=== PATIENT | male | born 1950 | race Caucasian/White ===

== ENCOUNTER 2017-06-28 17:25 | Inpatient (IN) | payer MEDICAID, OTHER ==
[2017-06-28] MEDS ORDERED: ONDANSETRON 4 MG/2 ML VIAL IVP ONE (17:50)
[2017-06-28] MEDS ORDERED: NS 1,000 ML IV ONE ×2 (17:50→18:58)
[2017-06-28] MEDS ORDERED: HYDROmorphONE/DILAUDID 1 MG/ML SYR IVP ONE (17:53)
--- NOTE | 2017-06-28 17:55 | EDPHY ---
H & P Stated Complaint: N/V/D since yesterday Time Seen by Provider: 06/28/17 17:47 HPI/ROS: CHIEF COMPLAINT: Vomiting HISTORY OF PRESENT ILLNESS: The patient is a 66-year-old man visiting from [place] who is camping in [place]000 [place]. He states that he thinks he has altitude sickness. Yesterday he began feeling nauseous and vomiting. No diarrhea. No shortness of breath. No abdominal pain. He does feel slightly lightheaded. He denies chest pain. No shortness of breath. No recent fevers or illness. No sick contacts. He denies recent alcohol use or cessation. He has been using marijuana. REVIEW OF SYSTEMS: Constitutional: denies: chills, fever, recent illness, recent injury EENTM: denies: blurred vision, double vision, nose congestion Respiratory: denies: cough, shortness of breath Cardiac: denies: chest pain, irregular heart rate, lightheadedness, palpitations Gastrointestinal/Abdominal: See HPI Genitourinary: denies: dysuria, frequency, hematuria, pain Musculoskeletal: denies: joint pain, muscle pain Skin: denies: lesions, rash, jaundice, bruising Neurological: denies: headache, numbness, paresthesia, tingling, dizziness, weakness Hematologic/Lymphatic: denies: blood clots, easy bleeding, easy bruising Immunologic/allergic: denies: HIV/AIDS, transplant EXAM: GENERAL: Well-appearing, well-nourished and in no acute distress. HEAD: Atraumatic, normocephalic. EYES: Pupils equal round and reactive to light, extraocular movements intact, sclera anicteric, conjunctiva are normal. ENT: TMs normal, nares patent, oropharynx clear without exudates. Moist mucous membranes. NECK: Normal range of motion, supple without lymphadenopathy or JVD. LUNGS: Breath sounds clear to auscultation bilaterally and equal. No wheezes rales or rhonchi. HEART: Regular rate and rhythm without murmurs, rubs or gallops. ABDOMEN: Soft, nontender, normoactive bowel sounds. No guarding, no rebound. No masses appreciated. BACK: No CVA tenderness, no spinal tenderness, step-offs or deformities EXTREMITIES: Normal range of motion, no pitting or edema. No clubbing or cyanosis. NEUROLOGICAL: Cranial nerves II through XII grossly intact. Normal speech, normal gait. 5/5 strength, normal movement in all extremities, normal sensation PSYCH: Normal mood, normal affect. SKIN: Warm, dry, normal turgor, no visible rashes or lesions. Source: Patient Exam Limitations: No limitations - Personal History Current Tetanus/Diphtheria Vaccine: Unsure Current Tetanus Diphtheria and Acellular Pertussis (TDAP): Unsure - Medical/Surgical History Hx Asthma: No Hx Chronic Respiratory Disease: No Hx Diabetes: No Hx Cardiac Disease: No Hx Renal Disease: No Hx Cirrhosis: No Hx Alcoholism: No Hx HIV/AIDS: No Hx Splenectomy or Spleen Trauma: No Other PMH: depression insomnia - Family History Significant Family History: No pertinent family hx - Social History Smoking Status: Former smoker Alcohol Use: Sober Drug Use: None Constitutional: Initial Vital Signs Temperature (C) 36.6 C 06/28/17 17:26 Heart Rate 91 06/28/17 17:26 Respiratory Rate 16 06/28/17 17:26 Blood Pressure 154/114 H 06/28/17 17:26 O2 Sat (%) 96 06/28/17 17:26 O2 Delivery Mode Room Air Allergies/Adverse Reactions: lidocaine Allergy (Severe, Verified 06/28/17 21:02) Other-Enter Comments procaine Allergy (Severe, Verified 06/28/17 21:02) Other-Enter Comments Home Medications: Medication Instructions Recorded Atorvastatin Calcium [Lipitor 40 40 mg PO HS 06/28/17 mg (*)] MIRTAZAPINE [MIRTAZAPINE] 15 mg PO HS 06/28/17 Omeprazole [Prilosec 20 mg] 20 mg PO DAILY PRN 06/28/17 PARoxetine HCL [Paxil 30mg (*)] 30 mg PO DAILY 06/28/17 Medical Decision Making ED Course/Re-evaluation: The patient is slightly hyponatremic. I will give him a 2nd L of fluid but at a very slow rate. I have ordered an ultrasound considering his white blood cell count and elevated bilirubin. He does not have any significant epigastric tenderness. 8:15 p.m. the patient states that he still feels rough. I will admit him for hyponatremia. He is no longer vomiting. 8:20 p.m. I discussed the case with Dr. India Gallardo who will admit to medical service. Differential Diagnosis: Partial list of the Differential diagnosis considered include but were not limited to; hyponatremia, gastritis, dehydration, biliary disease, liver disease and although unlikely based on the history and physical exam, I also considered sepsis coma ischemia, obstruction. - Data Points Laboratory Results: Laboratory Results 06/28/17 17:55 06/28/17 17:55 Medications Given: Atorvastatin Calcium (Lipitor) 40 mg PO HS [facility] Stop: 12/26/17 20:59 Last Admin: 06/29/17 20:59 Dose: 40 mg Enoxaparin Sodium (Lovenox) 40 mg SC DAILY [facility] Stop: 12/26/17 08:59 Last Admin: 06/30/17 07:43 Dose: Not Given Mirtazapine (Remeron) 15 mg PO HS [facility] Stop: 12/25/17 21:59 Last Admin: 06/29/17 20:59 Dose: 15 mg Ondansetron HCl (Zofran Odt) 4 mg PO Q4HRS PRN PRN Reason: Nausea/Vomiting, Use 1st Stop: 12/25/17 21:41 Last Admin: 06/30/17 08:41 Dose: 4 mg Paroxetine HCl (Paxil) 30 mg PO DAILY [facility] Stop: 12/26/17 08:59 Last Admin: 06/30/17 07:42 Dose: 30 mg Discontinued Medications Hydromorphone HCl (Dilaudid) 0.5 mg IVP EDNOW ONE Stop: 06/28/17 17:54 Last Admin: 06/28/17 18:00 Dose: 0.5 mg Sodium Chloride (Ns) 1,000 mls @ 0 mls/hr IV ONCE ONE; Wide Open PRN Reason: Protocol Stop: 06/28/17 17:51 Last Admin: 06/28/17 17:53 Dose: 1,000 mls Sodium Chloride (Ns) 1,000 mls @ 0 mls/hr IV EDNOW ONE; Wide Open PRN Reason: Protocol Stop: 06/28/17 18:59 Last Admin: 06/28/17 19:17 Dose: 1,000 mls Dextrose (D5w) 1,000 mls @ 250 mls/hr IV CONT [facility] Stop: 06/29/17 12:44 Last Admin: 06/29/17 09:28 Dose: 1,000 mls Sodium Chloride (Ns) 500 mls @ 500 mls/hr IV ONCE ONE Stop: 06/29/17 21:25 Last Admin: 06/29/17 20:59 Dose: 500 mls Lactated Ringer's (Lr) 500 mls @ 500 mls/hr IV CONT [facility] Stop: 06/30/17 07:29 Last Admin: 06/30/17 07:30 Dose: 500 mls Ondansetron HCl (Zofran) 4 mg IVP EDNOW ONE Stop: 06/28/17 17:51 Last Admin: 06/28/17 17:53 Dose: 4 mg Departure - Departure Disposition: [facility] Inpatient Acute Clinical Impression: Acute hyponatremia Condition: Fair
[2017-06-28 18:02] LABS: % IMMATURE GRANULYOCYTES 0.4 % (0.0-1.1); ABSOLUTE IMMATURE GRANULOCYTES 0.06 10^3/uL (0.00-0.10); ADD DIFF? NO; ADD MORPH? NO; ADD SCAN? NO; ATYPICAL LYMPHOCYTE FLAG 0 (0-99); FRAGMENT RBC FLAG 0 (0-99); HEMATOCRIT 49.3 % (40.0-51.0); HEMOGLOBIN 18.1 g/dL (13.7-17.5); LEFT SHIFT FLG 0 (0-99); LIPEMIA HEMOLYSIS FLAG 90 (0-99); MEAN CELL HEMOGLOBIN 32.9 pg (27.9-34.1); MEAN CELL HEMOGLOBIN CONCENTR. 36.7 g/dL (32.4-36.7); MEAN CELL VOLUME 89.6 fL (81.5-99.8); MEAN PLATELET VOLUME 9.5 fL (8.7-11.7); PLATELET CLUMPS FLAG 20 (0-99); PLATELET COUNT 269 10^3/uL (150-400); RED CELL DISTRIBUTION WIDTH 11.6 % (11.5-15.2)
[2017-06-28 18:21] LABS: ALANINE AMINOTRANSFERASE 38 IU/L (21-72); ALBUMIN 4.4 g/dL (3.5-5.0); ALKALINE PHOSPHATASE 95 IU/L (38-126); ANION GAP 16 mEq/L (8-16); ASPARTATE AMINOTRANSFERASE 35 IU/L (17-59); BILIRUBIN,TOTAL 2.3 mg/dL (0.1-1.4); BILIRUBIN-CONJUGATED 0.4 mg/dL (0.0-0.5); BILIRUBIN-UNCONJUGATED 1.9 mg/dL (0.0-1.1); CALCIUM 9.8 mg/dL (8.5-10.4); CARBON DIOXIDE 14 mEq/l (22-31); CHLORIDE 91 mEq/L (97-110); CREATININE 0.8 mg/dL (0.7-1.3); GLOMERULAR FILTRATION RATE > 60; GLUCOSE 121 mg/dL (70-100); POTASSIUM 3.9 mEq/L (3.5-5.2); SODIUM 121 mEq/L (134-144); TOTAL PROTEIN 7.6 g/dL (6.3-8.2)
[2017-06-28] MEDS ORDERED: OXYCODONE/APAP 5/325 TAB PO PRN (21:42)
[2017-06-28] MEDS ORDERED: ONDANSETRON 4 MG/2 ML VIAL IVP PRN (21:42)
[2017-06-28] MEDS ORDERED: HYDROCODONE/APAP 5/325 TAB PO PRN (21:42)
[2017-06-28] MEDS ORDERED: PANTOPRAZOLE SODIUM 40 MG TAB PO PRN (21:44)
--- NOTE | 2017-06-28 22:08 | GHP ---
[f rep st] HISTORY AND PHYSICAL DATE OF ADMISSION: 06/28/2017 CHIEF COMPLAINT: Nausea, vomiting. HISTORY OF PRESENT ILLNESS: This is a 66-year-old male with a history of hyperlipidemia and depress ion who presents with 1-day history of nausea, vomiting. He is not having any diarrhea. He does no t have any abdominal pain. He does feel cognitively slowed. He denies any new medications. He is not drinking significant amount of water. He has been camping in [place] at 9000 [place] for the las t 5 weeks. He denies any sick contacts. Has never had problems with sodium. REVIEW OF SYSTEMS: A 10-point review of systems was obtained and was negative. PAST MEDICAL HISTORY: 1. Hyperlipidemia. 2. Depression. 3. GERD. MEDICATIONS: Reviewed. SOCIAL HISTORY: No smoking. Quit alcohol several years ago. He is from [facility]. FAMILY HISTORY: Reviewed and noncontributory. PHYSICAL EXAM: VITAL SIGNS: Afebrile. Blood pressure is 120/82, heart rate 78, oxygen saturation 94% on room air. GENERAL: The patient is well developed in no apparent distress. HEENT: Nonicter ic sclerae. Extraocular muscles intact. Moist mucous membranes. NECK: Supple. No thyromegaly. LUNGS: Good effort. Clear to auscultation bilaterally. CARDIOVASCULAR: Regular rate and rhythm. No murmurs, gallops. ABDOMEN: Positive bowel sounds. Soft, nontender, nondistended. No hepatosp lenomegaly. EXTREMITIES: No clubbing, cyanosis, or edema. SKIN: Without rash. Warm, intact. NE UROLOGIC: Moving all 4 extremities. He is somewhat slow and forgetful in answering questions. PSY CHIATRIC: Normal affect. LABS: White count is elevated at 14, hemoglobin 18. Sodium 131, potassium 3.9. Creatinine is 0.8. Total bili is 2.3 with an unconjugated 1.9. TEST DATA: Renal ultrasound is no acute findings. ASSESSMENT: This is a 66-year-old male presenting with acute hyponatremia. PLAN: 1. Acute hyponatremia with suspicion that the hyponatremia causes nausea, vomiting rather than the other way around. Sodium is pretty low for just dehydration. He has not been vomiting profusely. I am not sure why his sodium is low. He denies excessive water intake. SIADH or diabetes insipidus is possible. Getting a urine sodium and urine osmol right now to help differentiate. He has recei braydon 1.5 L of fluid. Will stop that and get a sodium right now to see if this has changed. Further management will be dictated by urine studies. 2. Hyperlipidemia. 3. Depression. Continue medications. /[id number]/MODL
[2017-06-28 22:12] LABS: COLOR PALE YELLOW; LEUKOCYTE ESTERASE,URINE NEGATIVE (NEGATIVE); NITRITE,URINE NEGATIVE (NEGATIVE)
[2017-06-28] MEDS ORDERED: NS 1,000 ML IV SCH (22:45)
[2017-06-28] MEDS: MIRTAZAPINE 15 MG TAB PO SCH (23:04)
[2017-06-29 00:11] LABS: ANION GAP 9 mEq/L (8-16); CARBON DIOXIDE 19 mEq/l (22-31); CHLORIDE 98 mEq/L (97-110); CREATININE 0.8 mg/dL (0.7-1.3); GLOMERULAR FILTRATION RATE > 60; GLUCOSE 119 mg/dL (70-100); POTASSIUM 4.1 mEq/L (3.5-5.2); SODIUM 126 mEq/L (134-144)
[2017-06-29 04:43] LABS: ADD DIFF? NO; ADD MORPH? NO; ADD SCAN? NO; ATYPICAL LYMPHOCYTE FLAG 0 (0-99); FRAGMENT RBC FLAG 0 (0-99); HEMATOCRIT 44.7 % (40.0-51.0); HEMOGLOBIN 16.1 g/dL (13.7-17.5); LEFT SHIFT FLG 0 (0-99); LIPEMIA HEMOLYSIS FLAG 90 (0-99); MEAN CELL HEMOGLOBIN 33.4 pg (27.9-34.1); MEAN CELL VOLUME 92.7 fL (81.5-99.8); MEAN PLATELET VOLUME 9.6 fL (8.7-11.7); PLATELET CLUMPS FLAG 10 (0-99); PLATELET COUNT 241 10^3/uL (150-400); RED BLOOD CELL COUNT 4.82 10^6/uL (4.40-6.38)
[2017-06-29 04:59] LABS: ANION GAP 7 mEq/L (8-16); CARBON DIOXIDE 20 mEq/l (22-31); CHLORIDE 102 mEq/L (97-110); CREATININE 0.8 mg/dL (0.7-1.3); GLOMERULAR FILTRATION RATE > 60; GLUCOSE 97 mg/dL (70-100); SODIUM 129 mEq/L (134-144)
[2017-06-29 08:42] LABS: ANION GAP 8 mEq/L (8-16); CALCIUM 9.3 mg/dL (8.5-10.4); CARBON DIOXIDE 22 mEq/l (22-31); CHLORIDE 103 mEq/L (97-110); CREATININE 0.9 mg/dL (0.7-1.3); GLOMERULAR FILTRATION RATE > 60; GLUCOSE 87 mg/dL (70-100); POTASSIUM 4.9 mEq/L (3.5-5.2); SODIUM 133 mEq/L (134-144)
[2017-06-29] MEDS ORDERED: D5W 1,000 ML IV SCH (08:45)
--- NOTE | 2017-06-29 09:03 | HOSPPROG ---
Hospitalist Progress Note Assessment/Plan: # hypoNa - corrected slightly too fast last night - urine studies and correction most c/w hypovolemia - stop NS, no fluid restriction - D5W, check Q6 Na's # N/V - resolved # HLD - lipitor # depr - meds Subjective: still feels mentally slow; no emesis since yesterday Objective: Vital Signs Temp Pulse Resp BP Pulse Ox 36.4 C 63 18 134/79 H 99 06/29/17 04:00 06/29/17 04:00 06/29/17 04:00 06/29/17 04:00 06/29/17 04:00 Laboratory Results 06/29/17 04:10 06/29/17 08:07 06/28/17 06/29/17 06/30/17 05:59 05:59 05:59 Intake Total 100 Output Total 1500 Balance -1400 chart reviewed US reviewed - Physical Exam Constitutional: no apparent distress, appears nourished Cardiovascular: regular rate and rhythym, no murmur, rub, or gallop Respiratory: no respiratory distress, no rales or rhonchi, clear to auscultation Gastrointestinal: normoactive bowel sounds, soft, non-tender abdomen, no palpable masses ICD10 Worksheet Patient Problems: Problems Problem Status Onset Acute hyponatremia Acute
[2017-06-29] MEDS: ENOXAPARIN 40 MG/0.4 ML SYR SC SCH (09:28)
[2017-06-29 13:39] LABS: ANION GAP 12 mEq/L (8-16); CALCIUM 9.5 mg/dL (8.5-10.4); CARBON DIOXIDE 16 mEq/l (22-31); CHLORIDE 102 mEq/L (97-110); CREATININE 0.8 mg/dL (0.7-1.3); GLOMERULAR FILTRATION RATE > 60; GLUCOSE 92 mg/dL (70-100); POTASSIUM 4.5 mEq/L (3.5-5.2); SODIUM 130 mEq/L (134-144)
--- NOTE | 2017-06-29 14:51 | ASMTCMCOM ---
CM Note CM Note Notes: 66 year old male who had been camping in [place] for the past 5 weeks. Patient was admitted for nausea, vomitting, hyponatremia. He has a history of hyperlipedemia, depression, GERD. Hospitalist thought that patient might possibly be discharged Friday. Case Management doesn't anticipate that patient will have discharge needs. Date Signed: 06/29/2017 02:50 PM Electronically Signed By:Aleisha Noland
[2017-06-29 18:25] LABS: ANION GAP 14 mEq/L (8-16); CALCIUM 9.9 mg/dL (8.5-10.4); CARBON DIOXIDE 17 mEq/l (22-31); CHLORIDE 98 mEq/L (97-110); CREATININE 0.9 mg/dL (0.7-1.3); GLOMERULAR FILTRATION RATE > 60; GLUCOSE 93 mg/dL (70-100); POTASSIUM 4.6 mEq/L (3.5-5.2); SODIUM 129 mEq/L (134-144)
[2017-06-29] MEDS ORDERED: NS 500 ML IV ONE (20:26)
[2017-06-29] MEDS: ATORVASTATIN CALCIUM 40 MG TAB PO SCH (20:59)
[2017-06-29] MEDS: MIRTAZAPINE 15 MG TAB PO SCH (20:59)
[2017-06-30 01:02] LABS: ANION GAP 10 mEq/L (8-16); CARBON DIOXIDE 18 mEq/l (22-31); CHLORIDE 102 mEq/L (97-110); CREATININE 0.8 mg/dL (0.7-1.3); GLOMERULAR FILTRATION RATE > 60; GLUCOSE 88 mg/dL (70-100); POTASSIUM 4.2 mEq/L (3.5-5.2); SODIUM 130 mEq/L (134-144)
[2017-06-30 05:24] LABS: ANION GAP 13 mEq/L (8-16); CALCIUM 9.1 mg/dL (8.5-10.4); CARBON DIOXIDE 17 mEq/l (22-31); CHLORIDE 103 mEq/L (97-110); CREATININE 0.8 mg/dL (0.7-1.3); GLOMERULAR FILTRATION RATE > 60; GLUCOSE 90 mg/dL (70-100); POTASSIUM 4.4 mEq/L (3.5-5.2); SODIUM 133 mEq/L (134-144)
[2017-06-30] MEDS ORDERED: LR 500 ML IV SCH (06:30)
[2017-06-30] MEDS: ENOXAPARIN 40 MG/0.4 ML SYR SC SCH (07:43)
[2017-06-30] MEDS: ONDANSETRON DISINTEGRATING 4 MG TAB PO PRN (08:41)
[2017-06-30 10:41] LABS: ANION GAP 11 mEq/L (8-16); CALCIUM 9.4 mg/dL (8.5-10.4); CARBON DIOXIDE 21 mEq/l (22-31); CHLORIDE 100 mEq/L (97-110); CREATININE 0.8 mg/dL (0.7-1.3); GLOMERULAR FILTRATION RATE > 60; GLUCOSE 108 mg/dL (70-100); POTASSIUM 4.6 mEq/L (3.5-5.2); SODIUM 132 mEq/L (134-144)
--- NOTE | 2017-06-30 11:43 | HOSPPROG ---
Hospitalist Progress Note Assessment/Plan: 66M traveling from [facility] near [place] for about 6 weeks presented with emesis. Na 121 - corrected. Still feels lightheaded and does not seem safe for discharge today without any follow-up. Will workup lightheadedness further today. May be ready for discharge tomorrow. # hypoNa - almost normal today; will monitor 24 more hours to make sure he can maintain his Na without IVF # dizziness/lightheadedness - his cerebellar exam is slightly abnormal - check CTH, CTA H&N, monitor on tele, check one trop; consider echo if not resolving # N/V - resolved, still not eating well # HLD - lipitor # depr - meds Subjective: ongoing dizziness, lightheadedness Objective: Vital Signs Temp Pulse Resp BP Pulse Ox 37.1 C 76 14 113/76 95 06/30/17 07:09 06/30/17 07:09 06/30/17 07:09 06/30/17 07:09 06/30/17 07:09 Laboratory Results 06/29/17 04:10 06/30/17 10:05 06/29/17 06/30/17 07/01/17 05:59 05:59 05:59 Intake Total 100 2360 Output Total 1500 1390 450 Balance -1400 970 -450 - Time Spent With Patient Time Spent with Patient: greater than 35 minutes Time Spent with Patient: Greater than 35 minutes spent on this patients care, greater than 50% of time spent counseling, educating, and coordinating care regarding the above mentioned plan. - Physical Exam Constitutional: no apparent distress, appears nourished Cardiovascular: regular rate and rhythym, no murmur, rub, or gallop Respiratory: no respiratory distress, no rales or rhonchi, clear to auscultation Gastrointestinal: normoactive bowel sounds, soft, non-tender abdomen, no palpable masses ICD10 Worksheet Patient Problems: Problems Problem Status Onset Acute hyponatremia Acute
[2017-06-30] MEDS ORDERED: IOPAMIDOL (ISOVUE 370) 100 ML BTL IV ONE (11:54)
[2017-06-30] MEDS: MIRTAZAPINE 15 MG TAB PO SCH (20:40)
[2017-06-30] MEDS: ATORVASTATIN CALCIUM 40 MG TAB PO SCH (20:40)
[2017-07-01 05:33] LABS: ANION GAP 8 mEq/L (8-16); CALCIUM 9.7 mg/dL (8.5-10.4); CARBON DIOXIDE 24 mEq/l (22-31); CHLORIDE 99 mEq/L (97-110); CREATININE 0.9 mg/dL (0.7-1.3); GLOMERULAR FILTRATION RATE > 60; GLUCOSE 86 mg/dL (70-100); SODIUM 131 mEq/L (134-144)
[2017-07-01] MEDS: ENOXAPARIN 40 MG/0.4 ML SYR SC SCH ×2 (09:04→09:06)
[2017-07-01] MEDS ORDERED: BISACODYL 10 MG SUPP PR PRN (09:44)
[2017-07-01] MEDS ORDERED: LACTULOSE 20 GM/30 ML UDCUP PO PRN (09:44)
[2017-07-01] MEDS ORDERED: MAGNESIUM HYDROXIDE 30 ML UDCUP PO PRN (09:44)
[2017-07-01] MEDS ORDERED: POLYETHYLENE GLYCOL 3350 17 GM PKT PO PRN (09:44)
--- NOTE | 2017-07-01 13:46 | HOSPPROG ---
Hospitalist Progress Note Assessment/Plan: 66-year-old male traveling from [place] in [facility] flow last 6 weeks presented with hyponatremia with a sodium of 121. he has received IV fluids and is currently euvolemic but continues to be hyponatremic with a high urine sodium and a low urinary osmolalities. Patient is new to me today - hyponatremia with a sodium of 121. He is not corrected at this point. Spoke with Dr. Elder Ignacio and discussed the case and Nephrology will be seen in consulting. - Dizziness and lightheadedness. His cerebellar exam appears normal. Monitor has been stable with a sinus rhythm. - Nausea and vomiting have resolved but he continues to have a headache of a mild degree. It is unusual for him to have headaches. - Hyperlipidemia: Patient is on Lipitor. - Bronchospasm by history. Patient had a 40 year history of asthma which he reports resolved by taking honey. He admits that he eats 4-6 lb of honey a month. Currently is not using any bronchodilators and his exam is without wheezing. Plan: Nephrology consult and re-evaluate as his sodium improves. Subjective: Reports he feels improved but continues to have a headache. The nausea is for the most part resolved there has been no vomiting and denies fever chills cough shortness of breath or chest pain. There is no history of cardiovascular vascular rhythm disturbance. Objective: Vital Signs Temp Pulse Resp BP Pulse Ox 36.9 C 101 H 18 126/91 H 96 07/01/17 11:29 07/01/17 11:29 07/01/17 11:29 07/01/17 11:29 07/01/17 11:29 Laboratory Results 06/29/17 04:10 07/01/17 04:54 06/30/17 07/01/17 07/02/17 05:59 05:59 05:59 Intake Total 2360 1000 400 Output Total 1390 2730 700 Balance 970 -1730 -300 - Time Spent With Patient Time Spent with Patient: greater than 35 minutes Time Spent with Patient: Greater than 35 minutes spent on this patients care, greater than 50% of time spent counseling, educating, and coordinating care regarding the above mentioned plan. - Pending Discharge Pending Discharge Within 24 Hours: Yes Pending Discharge Date: 07/02/17 Pending Discharge Time: 11:00 - Physical Exam Constitutional: no apparent distress Eyes: PERRL, anicteric sclera Ears, Nose, Mouth, Throat: moist mucous membranes, hearing normal Cardiovascular: regular rate and rhythym, no murmur, rub, or gallop Respiratory: no respiratory distress, no rales or rhonchi, clear to auscultation Gastrointestinal: normoactive bowel sounds, soft, non-tender abdomen, no palpable masses Genitourinary: no bladder fullness Skin: warm Musculoskeletal: full muscle strength Neurologic: AAOx3, CN II-XII Intact, other ( Cerebellar function is intact) Psychiatric: interacting appropriately ICD10 Worksheet Patient Problems: Problems Problem Status Onset Acute hyponatremia Acute
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
[2017-07-01] MEDS: ACETAMINOPHEN 325 MG TAB PO PRN (21:06)
[2017-07-01] MEDS: SENNOSIDES/DOCUSATE SODIUM TAB PO SCH (21:07)
[2017-07-01] MEDS: ATORVASTATIN CALCIUM 40 MG TAB PO SCH (21:07)
[2017-07-01] MEDS: MIRTAZAPINE 15 MG TAB PO SCH (21:07)
[2017-07-02 05:16] LABS: ANION GAP 10 mEq/L (8-16); CALCIUM 10.1 mg/dL (8.5-10.4); CARBON DIOXIDE 27 mEq/l (22-31); CHLORIDE 97 mEq/L (97-110); CREATININE 1.1 mg/dL (0.7-1.3); GLOMERULAR FILTRATION RATE > 60; GLUCOSE 88 mg/dL (70-100); POTASSIUM 5.7 mEq/L (3.5-5.2); SODIUM 134 mEq/L (134-144)
[2017-07-02 06:02] LABS: CORTISOL-AM 11.1 ug/dL (4.5-22.7)
[2017-07-02 08:16] LABS: CALCIUM 10.1 mg/dL (8.5-10.4); GLOMERULAR FILTRATION RATE > 60; GLUCOSE 91 mg/dL (70-100)
[2017-07-02 08:21] LABS: ANION GAP 10 mEq/L (8-16); CARBON DIOXIDE 25 mEq/l (22-31); CHLORIDE 98 mEq/L (97-110); POTASSIUM 5.7 mEq/L (3.5-5.2); SODIUM 133 mEq/L (134-144)
[2017-07-02] MEDS: ENOXAPARIN 40 MG/0.4 ML SYR SC SCH (08:43)
[2017-07-02] MEDS: SENNOSIDES/DOCUSATE SODIUM TAB PO SCH ×2 (08:45→22:15)
--- NOTE | 2017-07-02 10:08 | CPEKG ---
Heart Rate: 91 RR Interval: 659 P-R Interval: 164 QRSD Interval: 78 QT Interval: 352 QTC Interval: 434 P [place]: 56 QRS [place]: -43 T Wave [place]: 68 EKG Severity - OTHERWISE NORMAL ECG - EKG Impression: SINUS RHYTHM EKG Impression: ATRIAL PREMATURE COMPLEX EKG Impression: LEFT AXIS DEVIATION Electronically Signed By: Vicky Gaines 02-Jul-2017 19:33:18
[2017-07-02 13:06] LABS: POTASSIUM 4.8 mEq/L (3.5-5.2)
[2017-07-02] MEDS: ACETAMINOPHEN 325 MG TAB PO PRN ×2 (13:46→22:15)
[2017-07-02] MEDS: ONDANSETRON DISINTEGRATING 4 MG TAB PO PRN (13:47)
--- NOTE | 2017-07-02 14:45 | SOAPPROG ---
SOAP Progress Note Assessment/Plan: Assessment: 1. hypoNa: essentially resolved, primary issue appears to have been vol depletion based on response to saline. Possibly confounded a bit by SSRI use but overall picture not really c/w this and I would not recommend stopping med. Suspect pt may yet be a little dry based on symptoms and labs, will give some saline and d/c po fluid restriction completely. Assuming Na stable in am should be able to d/c. 2. HyperK: resolved spontaneously, unclear if was real vs spurious. I suspect he is slightly vol deplete based on symptoms and mild creat elevation, this would also tend to increase K. Will give NS as above. 3. dizziness/nausea: still having some symptoms despite normalizaton of Na. Will give ivf. Plan: 07/02/17 14:42 Subjective: Has been a bit dizzy when standing, was nauseous earlier. Eating without difficulty however. Objective: Vital Signs Temp Pulse Resp BP Pulse Ox 36.9 C 91 18 118/87 H 93 07/02/17 11:47 07/02/17 11:47 07/02/17 11:47 07/02/17 11:47 07/02/17 11:47 Laboratory Results 06/29/17 04:10 07/02/17 11:44 07/01/17 07/02/17 07/03/17 05:59 05:59 05:59 Intake Total 1000 900 Output Total 2730 700 Balance -1730 200 Physical Exam - Physical Exam General Appearance: no apparent distress Respiratory: lungs clear Cardiac/Chest: regular rate, rhythm Extremities: pedal edema (none) ICD10 Worksheet Patient Problems: Problems Problem Status Onset Acute hyponatremia Acute
[2017-07-02] MEDS ORDERED: NS 1,000 ML IV SCH (15:00)
--- NOTE | 2017-07-02 15:39 | HOSPPROG ---
Hospitalist Progress Note Assessment/Plan: 66-year-old male traveling from [place] in [facility] flow last 6 weeks presented with hyponatremia with a sodium of 121. he has received IV fluids and is currently euvolemic but continues to be hyponatremic with a high urine sodium and today normal urinary osmolality. Nephrology note is appreciated. Matter was discussed also with Nephrology. - hyponatremia with a sodium of 121. He is not corrected at this point. Sodium is near normal today though he may remain slightly hypovolemic. He will be given additional saline. - Dizziness and lightheadedness. His cerebellar exam appears normal. Monitor has been stable with a sinus rhythm. - Nausea and vomiting have resolved as has his headache. - Hyperlipidemia: Patient is on Lipitor. - Bronchospasm by history. Patient had a 40 year history of asthma which he reports resolved by taking honey. He admits that he eats 4-6 lb of honey a month. Currently is not using any bronchodilators and his exam is without wheezing. Plan: Will give normal saline today. The fluid restriction and evaluate the sodium and symptoms tomorrow. Probable discharge tomorrow. Case discussed with Nephrology. Time 40 minutes Subjective: Reports he is feeling improved but stools feels weak when he is walking and at times slightly dizzy. No headache nausea vomiting fever shortness of breath or chest pain Objective: Vital Signs Temp Pulse Resp BP Pulse Ox 36.5 C 100 18 124/97 H 96 07/02/17 14:57 07/02/17 14:57 07/02/17 14:57 07/02/17 14:57 07/02/17 14:57 Laboratory Results 06/29/17 04:10 07/02/17 11:44 07/01/17 07/02/17 07/03/17 05:59 05:59 05:59 Intake Total 1000 900 Output Total 2730 700 Balance -1730 200 - Time Spent With Patient Time Spent with Patient: greater than 35 minutes Time Spent with Patient: Greater than 35 minutes spent on this patients care, greater than 50% of time spent counseling, educating, and coordinating care regarding the above mentioned plan. - Pending Discharge Pending Discharge Within 24 Hours: Yes Pending Discharge Date: 07/03/17 Pending Discharge Time: 11:00 - Physical Exam Constitutional: no apparent distress Eyes: PERRL, anicteric sclera Ears, Nose, Mouth, Throat: moist mucous membranes, hearing normal Cardiovascular: regular rate and rhythym, no murmur, rub, or gallop Respiratory: no respiratory distress, no rales or rhonchi, clear to auscultation Gastrointestinal: normoactive bowel sounds, soft, non-tender abdomen, no palpable masses Genitourinary: no bladder fullness Skin: warm Musculoskeletal: full muscle strength Neurologic: AAOx3, CN II-XII Intact Psychiatric: interacting appropriately ICD10 Worksheet Patient Problems: Problems Problem Status Onset Acute hyponatremia Acute
[2017-07-02] MEDS: ATORVASTATIN CALCIUM 40 MG TAB PO SCH (22:15)
[2017-07-02] MEDS: MIRTAZAPINE 15 MG TAB PO SCH (22:15)
[2017-07-02 22:56] VITALS: RESP 16
[2017-07-03 04:53] LABS: % IMMATURE GRANULYOCYTES 0.2 % (0.0-1.1); ABSOLUTE IMMATURE GRANULOCYTES 0.01 10^3/uL (0.00-0.10); ADD DIFF? NO; ADD MORPH? NO; ADD SCAN? NO; ATYPICAL LYMPHOCYTE FLAG 0 (0-99); FRAGMENT RBC FLAG 0 (0-99); HEMATOCRIT 46.9 % (40.0-51.0); HEMOGLOBIN 16.3 g/dL (13.7-17.5); LEFT SHIFT FLG 0 (0-99); LIPEMIA HEMOLYSIS FLAG 90 (0-99); MEAN CELL HEMOGLOBIN 32.6 pg (27.9-34.1); MEAN CELL HEMOGLOBIN CONCENTR. 34.8 g/dL (32.4-36.7); MEAN CELL VOLUME 93.8 fL (81.5-99.8); MEAN PLATELET VOLUME 9.7 fL (8.7-11.7); PLATELET CLUMPS FLAG 0 (0-99); PLATELET COUNT 225 10^3/uL (150-400)
[2017-07-03 05:10] LABS: ANION GAP 8 mEq/L (8-16); CALCIUM 9.4 mg/dL (8.5-10.4); CARBON DIOXIDE 20 mEq/l (22-31); CHLORIDE 103 mEq/L (97-110); CREATININE 0.8 mg/dL (0.7-1.3); GLOMERULAR FILTRATION RATE > 60; GLUCOSE 80 mg/dL (70-100); POTASSIUM 4.6 mEq/L (3.5-5.2); SODIUM 131 mEq/L (134-144)
[2017-07-03 07:06] VITALS: BP 134/99; PULSE 78; TEMP 98.3; O2SAT 97
[2017-07-03] MEDS: ENOXAPARIN 40 MG/0.4 ML SYR SC SCH ×2 (09:26→09:34)
[2017-07-03] MEDS: SENNOSIDES/DOCUSATE SODIUM TAB PO SCH (09:28)
--- NOTE | 2017-07-03 12:38 | SOAPPROG ---
SOAP Progress Note Assessment/Plan: Assessment:Plan: Hyponatremia-Na slightly lower after the NS that was given yesterday -initial urine studies consistent with a component of volume depletion -repeat studies after IVF consistent with component of SIADH -CXR, TSH and cortisol unremarkable -could consider chest CT to completely rule out pulmonary process that could contribute to low Na level -I do not feel strongly about this at this time -CT of head and neck were without changes to suggest neoplasm -he should continue fluid restriction -he should liberalize his salt intake -likely can go home today on current restrictions with outpatient labs and follow up in Nephrology 07/03/17 12:39 Subjective: no new complaints, slightly dizzy Objective: Vital Signs Temp Pulse Resp BP Pulse Ox 36.8 C 78 16 134/99 H 97 07/03/17 07:05 07/03/17 07:05 07/03/17 07:05 07/03/17 07:05 07/03/17 07:05 Laboratory Results 07/03/17 04:20 07/03/17 11:46 07/02/17 07/03/17 07/04/17 05:59 05:59 05:59 Intake Total 900 400 Output Total 700 600 Balance 200 -200 Physical Exam - Physical Exam General Appearance: alert, no apparent distress, thin EENT: normal ENT inspection Neck: normal inspection Respiratory: lungs clear, normal breath sounds, No respiratory distress Cardiac/Chest: regular rate, rhythm, No diastolic murmur, No systolic murmur Abdomen: normal bowel sounds Skin: normal color, warm/dry Extremities: No swelling Neuro/Psych: no motor/sensory deficits, alert, normal mood/affect ICD10 Worksheet Patient Problems: Problems Problem Status Onset Acute hyponatremia Acute
--- NOTE | 2017-07-03 14:05 | GDS ---
[f rep st] DISCHARGE SUMMARY NEW AND ACUTE DIAGNOSES: 1. Acute hyponatremia, multifactorial in nature. 2. Dizziness and lightheadedness, mostly resolved at the time of discharge. 3. Nausea and vomiting, resolved. 4. Hyperlipidemia, currently on Lipitor. 5. Bronchospasm, by history. CHRONIC DIAGNOSIS: Asthma. CONSULTATION: With Nephrology. PROCEDURES: CT head and neck are without acute findings and without findings of a neoplasm. TSH is normal. Cortisol was unremarkable. HOSPITAL COURSE: A 66-year-old male who presented with an approximately 1-week history of dizziness and weakness and was found to be hyponatremic on admission with a sodium of 121. He was initially gi citlaly normal saline and normalized to approximately 130. Evaluation showed that the hyponatremia was p robably multifactorial. Initially, it was secondary to hypovolemia and then failed to respond furthe r. 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 Chest x-ray, TSH a nd cortisol are all unremarkable. CT of the head and neck were without changes of findings of a neop lasm. Consideration was given to a CT of the chest to rule out a pulmonary neoplasm, but this is of low probability and can be done as an outpatient if needed. The gentleman was maintained on a fluid restriction and was able to raise his sodium and hold it at a pproximately 130. He has been told to liberalize his salt diet. DISCHARGE MEDICATIONS: These are the same as his admission medications without changes or deletions: Mirtazapine 15 mg h.s., Paxil 30 mg daily, omeprazole 20 mg daily, Lipitor 40 mg a day. PLAN: Mayman was discharged to his own care. He was ambulatory and primarily without evidence of dizziness, weakness or shortness of breath at the time of discharge. He will follow up in [facility] [address] Ignacio for a recheck of his laboratories and further evaluation if needed. Laboratories of note at the time of discharge: WBC 5800, hemoglobin 16.3, sodium 132. Renal functio n was normal. Potassium 4.6. Matters to be addressed at the first followup: Recheck of his sodium and consideration as to why the gentleman should be persistently hyponatremic. The gentleman was told to maintain a fluid restriction of approximately 1500 cc a day until he sees Luis Armando Ignacio. TIME: This discharge required 40 minutes, greater than 50% to veterans' counselor and coordinate the gentleman's care. /[id number]/MODL
--- NOTE | 2017-07-06 17:06 | ASDISCHSUM ---
Discharge Information Plan Status:Home with No Needs Medically Cleared to Leave:07/03/2017 Discharge Date:07/03/2017 03:50 PM CM D/C Disposition:Home, Routine, Self-Care ADT D/C Disposition:Home, Routine, Self-Care Projected Discharge Date:07/03/2017 12:00 AM Transportation at D/C:Family Discharge Delay Reason: Follow-Up Date:07/03/2017 12:00 AM Discharge Slot: Final Diagnosis:Hyponatremia Placement Information Patient Contact Information Contact Name:TONY Relationship:Daughter Address: Work Phone: City: [facility] Phone: State/Zip Code: Email: Financial Information Financial Class:Medicare Advantage Plans Primary Plan Desc:[facility] ADVANTAGE PLANS Primary Plan Number:[id number] Secondary Plan Desc: Secondary Plan Number: Assessment Information [facility] CM Progress Note CM Note CM Note Notes: 66 year old male who had been camping in [place] for the past 5 weeks. Patient was admitted for nausea, vomitting, hyponatremia. He has a history of hyperlipedemia, depression, GERD. Hospitalist thought that patient might possibly be discharged Friday. Case Management doesn't anticipate that patient will have discharge needs. Date Signed: 06/29/2017 02:50 PM Electronically Signed By:Aleisha Noland Intervention Information
== END 2017-07-03 15:50 | disposition home or self-care (01) | DRG 641 ==
LOC: F3E 21:13 → OBSVTOIN 21:43 → F3E 21:52
PROVIDERS: ADMIT Internal Medicine; ATTEND Internal Medicine Pulmonary Disease
DX: E87.1 Hypo-osmolality and hyponatremia (principal); K21.9 Gastro-esophageal reflux disease without esophagitis; E78.5 Hyperlipidemia, unspecified; F32.9 Major depressive disorder, single episode, unspecified
CPT/HCPCS: 96374; J1170; J1650; J2405; Q9967